=== PATIENT | male | born 1960 | race Caucasian/White ===

== ENCOUNTER 2023-07-22 10:56 | Outpatient (CLI) | payer BC ==
[2023-07-22 13:23] LABS: #Eosinphils 0.1 10x3/uL (0.0-0.5); #Monocytes 0.5 10x3/uL (0.0-1.1); #Neutrophils 3.1 10x3/uL (1.5-8.4); %Basophils 0.5 % (0.0-2.0); %Eosinophils 1.2 % (0.0-6.0); %Lymphocytes 37.9 % (18.0-47.0); %Monocytes 8.6 % (0.0-10.0); %Neutrophils 51.6 % (40.0-75.0); Hematocrit 44.2 % (38.8-50.0); Hemoglobin 15.5 g/dL (13.5-17.5); Mean Corpuscular HGB CONC 35.1 g/dL (32.0-36.0); Mean Corpuscular Hemoglobin 31.4 pg (27.0-33.0); Mean Corpuscular Volume 89.5 fl (81.2-95.1); Mean Platelet Volume 10.2 fl (7.4-10.4); Platelet Count 187 10x3/uL (150-450); RBC Distribution Width 11.8 % (11.5-14.5); Red Blood Cell (RBC) Count 4.94 10x6/uL (4.32-5.72); White Blood Cell (WBC) Count 6.1 10x3/uL (3.5-10.5)
[2023-07-22 13:45] LABS: ALT (SGPT) 20 U/L (8-55); AST (SGOT) 23 U/L (5-34); Albumin 4.2 g/dL (3.4-4.8); Alkaline Phosphatase 43 U/L (40-110); Anion Gap 15 mmol/L (10-20); BUN (Urea Nitrogen) 17 mg/dL (8.4-25.7); Bilirubin, Total 0.5 mg/dL (0.2-1.2); Calc. Creatinine Clearance 0 mL/min (70-130); Calcium 9.3 mg/dL (7.8-10.44); Carbon Dioxide 22 mmol/L (23-31); Chloride 107 mmol/L (98-107); Estimated GFR 83; Globulin 2.5 g/dL (2.4-3.5); Glucose 95 mg/dL (80-115); Potassium 4.2 mmol/L (3.5-5.1); Protein, Total 6.7 g/dL (5.8-8.1); Sodium 140 mmol/L (136-145)
== END 2023-07-22 10:57 | disposition home or self-care (01) ==
LOC: LABBT 10:56
PROVIDERS: ATTEND Surgery
DX: Z01.818 Encounter for other preprocedural examination (principal); K42.9 Umbilical hernia without obstruction or gangrene
CPT/HCPCS: 80053; 85025; 93005; 93010

== ENCOUNTER 2023-07-26 09:58 | Day surgery (SDC) | payer BC ==
[2023-07-22 11:40] VITALS: BMI 25.8
[2023-07-26] MEDS ORDERED: EPINEPHrine 1 MG/ML VIAL ONE (10:43)
[2023-07-26] MEDS ORDERED: Bupivacaine 0.25% HCL 30 ML VIAL ONE (10:43)
[2023-07-26] MEDS ORDERED: Lidocaine 1% PF 5 ML VIAL ONE (11:01)
[2023-07-26] MEDS ORDERED: PROPOFOL 20 ML ONE ×2 (11:01→11:47)
[2023-07-26] MEDS ORDERED: fentaNYL 50 mcg/mL 1 mL Vial ONE (11:01)
[2023-07-26] MEDS ORDERED: Sodium Chloride 0.9% 100 ML ONE (11:27)
[2023-07-26] MEDS ORDERED: CEFAZOLIN 2 GM VIAL ONE (11:27)
[2023-07-26] MEDS ORDERED: Ondansetron PF 4 MG/2 ML Vial ONE (11:55)
[2023-07-26] MEDS ORDERED: fentaNYL PF 100 MCG/2 ML SYRINGE ONE ×2 (12:17→12:39)
[2023-07-26] MEDS ORDERED: HYDROmorphone 0.5 MG/0.5 ML SYRINGE ONE ×2 (12:53→13:18)
[2023-07-26] MEDS ORDERED: Midazolam HCl 2 mg/2 ml Vial ONE (14:22)
[2023-07-26] MEDS ORDERED: Ketorolac Tromethamine 30 MG (1 mL) VIAL ONE (14:22)
[2023-07-26] MEDS ORDERED: Ketorolac Tromethamine 30 MG (1 mL) VIAL IVP SCH (14:30)
[2023-07-26] MEDS ORDERED: Midazolam HCl 2 mg/2 ml Vial SLOW IVP SCH (14:30)
[2023-07-26] MEDS ORDERED: HYDROcodone/Acetaminophen 5/325 mg Tablet ONE (15:16)
== END 2023-07-26 15:30 | disposition home or self-care (01) ==
LOC: SDC 09:58
PROVIDERS: ATTEND Surgery
PROC: 0WQF4ZZ Repair Abdominal Wall, Percutaneous Endoscopic Approach (ICD-10-PCS; principal; 2023-07-26)
DX: K42.9 Umbilical hernia without obstruction or gangrene (principal); M19.90 Unspecified osteoarthritis, unspecified site; E78.00 Pure hypercholesterolemia, unspecified; Z79.890 Hormone replacement therapy; Z88.0 Allergy status to penicillin; Z79.82 Long term (current) use of aspirin; Z79.899 Other long term (current) drug therapy
CPT/HCPCS: J0171; J1170; J1885; J2250; J2405; J2704; J3010; J3490; S0020